=== PATIENT | female | born 1975 | race Caucasian/White ===

== ENCOUNTER → 2017-02-26 | Outpatient (CLI) | payer MEDICARE, OTHER ==
[~2017-02-26] MED LIST: AMOXICILLIN875 MG PO; ATARAX PO; AUGMENTIN PO; BENZONATATE PO; BIAXIN PO; CLARITIN10 MG PO; GEODAN PO; K-DUR20 ME1 PO; KETOPROFEN PO; NO MEDICATIONS; PERCOCET PO; PHENERGAN PO; PROZAC PO; SEROQUEL PO; TOPAMAX PO; VOLTAREN75 MG PO; WELLBUTRIN PO
--- NOTE | ~2017-02-26 | CR63 ---
[facility] A Service [facility] RADIOLOGY TEXT RESULTS PATIENT: LEXIS CHRISTINA LOCATION: [facility] : 77 UNIT #: [id number] AGE: [address]: Purnima Fine SEX: F ORDER DR: [id number] [address] [address] [id number] O MR#: [id number] Acc #: [id number] NAME: LEXIS CHRISTINA. : 1975 SEX: F STUDY DATE/TIME: 02/26/2017 17:08 UNIT: [facility] ROOM: STUDY DESCRIPTION: CR Chest 2 View Attending Physician: Purnima Fine A.P.R.N. Referring Physician: Purnima Fine A.P.R.N. Ordering Physician: Purnima Fine A.P.R.N. MEDICAL IMAGING REPORT This report is preliminary unless electronic signature is present. EXAM Chest x-ray HISTORY Cough for the past 2 weeks with difficulty breathing. COMPARISON 06/01/2016. TECHNIQUE 2 views of the chest were obtained. FINDINGS PA and lateral examination of the chest upright shows a good expansion of the parenchyma with a normal distribution of the pulmonary vascularity. There is no indication of congestion, effusion, infiltrate, tumor, or nodular density. The pleural reflections and diaphragmatic contours are normal. The cardiac silhouette and mediastinal anatomy is within normal limits. IMPRESSION Normal chest. Dictated by... Pranay Martin M.D. THIS IS AN ELECTRONICALLY VERIFIED REPORT Pranay Martin M.D. at 02/27/2017 11:28 AM RLF/pcl [facility] A Service [facility] RADIOLOGY TEXT RESULTS PATIENT: LEXIS CHRISTINA LOCATION: [facility] : 77 UNIT #: [id number] AGE: [address]: Purnima Fine SEX: F ORDER DR: TD: 02/27/2017 10:00 JOB #: [id number] MEDICAL IMAGING REPORT Page 1 of 1
--- NOTE | ~2017-02-26 | CR93 ---
[facility] A Service of [facility] RADIOLOGY TEXT RESULTS PATIENT: LEXIS CHRISTINA LOCATION: [facility] : 77 UNIT #: [id number] AGE: [address]: Purnima FineP SEX: F ORDER DR: [id number] [address] [id number] O MR#: [id number] Acc #: [id number] NAME: LEXIS CHRISTINA : 1975 SEX: F STUDY DATE/TIME: 02/26/2017 17:08 UNIT: [facility] ROOM: STUDY DESCRIPTION: CR Elbow Min 3 Views Lt Attending Physician: Purnima Fine A.P.R.N. Referring Physician: Purnima Fine A.P.R.N. Ordering Physician: Purnima Fine A.P.R.N. [facility] MEDICAL IMAGING REPORT This report is preliminary unless electronic signature is present. EXAM Left elbow. HISTORY Elbow pain for the past 8 weeks with questionable history of trauma. TECHNIQUE 3 views of the elbow were obtained. FINDINGS There is a metallic foreign body ventral to the proximal forearm measuring about 5 mm in diameter. The elbow joint itself has a normal appearance. No effusion or fracture is seen. IMPRESSION Negative elbow. Small metallic foreign body in the ventral aspect of the upper forearm. Dictated by... Pranay Martin M.D. THIS IS AN ELECTRONICALLY VERIFIED REPORT Pranay Martin M.D. at 02/27/2017 11:28 AM SHERIN/cayden TD: 02/27/2017 10:01 JOB #: [id number] MEDICAL IMAGING REPORT Page 1 of 1
== END | disposition home or self-care (01) ==
LOC: SRAD 16:55
DX: R05 Cough (principal); M25.522 Pain in left elbow
CPT/HCPCS: 71020; 73080